=== PATIENT | male | born 1980 | race Caucasian/White ===

== ENCOUNTER 2025-01-25 00:08 | Emergency (ER) | payer BC, SELFPAY ==
--- OUTSIDE RECORDS SUMMARY | 2025-01-25 00:11 | XMS_ITS | Clinical Summary ---
Author Organization [facility] Address [address] [place] [id number] Care Team Providers Care Emr Trainer Name Role Phone Amarilis Benites DO Primary Care Provider [phone] Allergies Active Allergy Reactions Criticality Noted Date Comments Bee Venom Protein (Honey Bee) Hives,Dyspnea Medications medication order composerIndications:RENE (obstructive sleep apnea) 10/26/2020 AHI-15 on HST; Diagnosis obstructive sleep apnea-- MRD #1 1 unit 021 Active fluticasone (50 mcg per actuation) nasal solution (FLONASE)Indications:Na bruno congestion INHALE 2 SPRAYS INTO AFFECTED NOSTRIL(S) ONCE DAILY 48 g 1 023 Active CPAPIndications:RENE (obstructive sleep apnea) CPAP machine for home use at pressure 6-15cmw; starting pressure between 4-6 based on comfort, full face mask x1/3month with a full face cushion x1/mo 1 Each 11 024 Active losartan (COZAAR) 100 mg tabletIndications:Essen tial hypertension Take 1 Tablet (100 mg) by mouth once daily. 90 Tablet 3 024 Active rosuvastatin (CRESTOR) 20 mg tabletIndications:Famil ial hypercholesterolemia Take 1 Tablet (20 mg) by mouth at bedtime. 90 Tablet 3 024 Active sildenafil citrate (VIAGRA) 50 mg tabletIndications:Other male erectile dysfunction Take 1 Tablet (50 mg) by mouth once daily if needed for Erectile Dysfunction. Take 30min to 4 hours before sexual activity. Max 100mg/24hrTAKE 1 TABLET BY MOUTH ONCE A DAY IF NEEDED FOR ERECTILE DYSFUNCTION. TAKE 30 MINS TO 4 HOURS BEFORE SEXUAL ACTIVITY. MAX 100MG PER 24 HOURS 30 Tablet 024 Active tirzepatide (Mounjaro) 2.5 mg/0.5 mL penIndications:Type 2 diabetes mellitus without complication, without long-term current use of insulin (HC),Morbid exogenous obesity (HC) Inject 2.5 mg subcutaneous once weekly. 2 mL 024 Active tirzepatide (Mounjaro) 5 mg/0.5 mL penIndications:Type 2 diabetes mellitus without complication, without long-term current use of insulin (HC),Morbid exogenous obesity (HC) Inject 5 mg subcutaneous once weekly. 2 mL 024 Active tirzepatide (Mounjaro) 7.5 mg/0.5 mL penIndications:Type 2 diabetes mellitus without complication, without long-term current use of insulin (HC),Morbid exogenous obesity (HC) Inject 7.5 mg subcutaneous once weekly. 2 mL 024 Active pen tirzepatide (Mounjaro) 10 mg/0.5 mL penIndications:Type 2 diabetes mellitus without complication, without long-term current use of insulin (HC),Morbid exogenous obesity (HC) Inject 10 mg subcutaneous once weekly. 2 mL 024 Active tirzepatide (Mounjaro) 12.5 mg/0.5 mL penIndications:Type 2 diabetes mellitus without complication, without long-term current use of insulin (HC),Morbid exogenous obesity (HC) Inject 12.5 mg subcutaneous once weekly. 2 mL 024 Active FreeStyle Magali 3 Plus Sensor for continuous blood glucose monitor (CGM)Indications:Type 2 diabetes mellitus without complication, without long-term current use of insulin (HC) To be used to read blood sugars, follow relief captain directions. Wear each for 15 days Active tirzepatide (Mounjaro) 15 mg/0.5 mL penIndications:Type 2 diabetes mellitus without complication, without long-term current use of insulin (HC),Morbid exogenous obesity (HC) Inject 15 mg subcutaneous once weekly. 6 mL 3 025 Active varenicline tartrate 1 mg tabletIndications:Tobac co abuse Take 1 mg by mouth two times daily with meals. 112 Tablet 025 Active EPINEPHrine 0.3 mg/0.3 mL auto-injectorIndication s:Bee sting allergy ADMINISTER 0.3 MG IN THE MUSCLE 1 TIME FOR ALLERGIC REACTION 2 Each 1 025 Active Active Problems Problem Noted Date Diagnosed Date Type 2 diabetes mellitus wit hout complication, without long-term current use of insulin 05/16/2024 Morbid exogenous obesity 05/16/2024 RENE [place] PSG- AHI1 RDI-7 201610/26/2020 AHI-15 o n HST 11/17/2020 Essential hypertension 10/19/2020 Pure hypercholesterolemia 10/19/2020 Prediabetes 10/19/2020 Obesity (BMI 35.0-39.9 without comorbidity) 09/06 Allergic rhinitis, cause unspecified 09/29/2009 Immunizations Immunization Administration Dates Next Due AMB Influenza, IIV4 PF (=>6 mos Flulaval,Fluzone Fluarix)(Flu Clinic Only) 06/06/2018 COVID-19 vaccine (Moderna 100mcg/0.5mL) PF, MDV 08/13/2020,07/16/2020 HepA-HepB (Twinrix) 02/16/2011,09/09/2010,2010 Influenza A (H1N1), Inactivated 07/20/2009 Influenza Virus, Unspecified 05/03/2017, 05/09/2016,05/09/2016,2013,03/24/2013,03/19/2012,04/11/2011 Influenza, IIV3 (Age 6-35 mos) 04/11/2011 Influenza, IIV3 (Age >=3 years) 03/19/2012,04/11 Influenza, IIV4 04/09/2023,,05/03/2017,2015,03/18/2013 TD, UNSPECIFIED 10/16/1995 Td (Age >=7 Years) 10/19/2020, 9,12/20/2002,1995 Tdap 08/05/2010 Family History Medical History Relation Name Comments Basal cell carcinoma Father Diabetes Father Heart Disease Father HTN cardiomyop athy Hypertension Father born [birth year] Melanoma Mother Other Mother born 1955 Heart attack Paternal Uncle Cancer-breast No Family History Cancer-colon No Family History Cancer-ovarian No Family History Cancer-prostate No Family History Relation Name Status Comments Brother Father Mother Paternal Uncle Alive Social History Tobacco Use Types Packs/Day Years Used Date Smoking Tobacco: Former Cigarettes 1 10 Smokeless Tobacco: Former Chew Tobacco Cessation:Counseling Given: Not Answered Alcohol Use Standard Drinks/Week Comments Yes 3 (1 standard drink = 0.6 oz pure alcohol) few beers couple times per week PHQ-2 Answer Date Recorded PHQ-2 TOTAL SCORE 0 05/09/2024 Social Connections Answer Date Recorded Do you often feel lonely or isolated from those around you? 0 05/09/2024 Financial Resource Strain Answer Date R ecorded Difficulty of Paying Living Expenses 3 05/09/2024 Difficulty of Paying Living Expenses Not on file 05/09/2024 Food Insecurity Answer Date Recorded Do you worry your food will run out before you are able to buy more? 1 05/09/2024 Transportation Needs Answer Date Record ed Does lack of transportation keep you from medica l appointments? 1 05/09/2024 Does lack of transportation keep you from work, meetings or getting things that you need? 1 05/09/2024 Housing Stability Answer Date Recorded What is your housing situation today? 1 05/09/2024 Utilities Answer Date Recorded Do you have trouble paying f or utilities (for example, heat, electricity, water, phone)? 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 Respiratory Rate 18 04/26/2022 2:18 PM CDT Oxygen Saturation 98% 05/09/2024 1:02 PM CDT Inhaled Oxygen Concentration - - Weight 144.8 kg (319 lb 4.8 oz) 05/09/2024 1:02 PM CDT Height 188 cm (6' 2) 04/09/2023 7:46 AM CDT Body Mass Index 41 04/09/2023 7:46 AM CDT Plan of Treatment Health Maintenance Due Date Last Done Comments Pneumococcal series for age 6-49 (1 of 2 - PCV) 02/24/1999 COVID-19 vaccine series ( - 2023- season) 2024 08/13/2020, 07/16/2020 BMI (ht and wt on same day) for age 18+ 04/09/2024 04/09/2023, 01/11/2022, 11/17/2020, Additional history exists Influenza Vaccine (#1) 2025 , 03/25/2021, 06/06/2018, Additional history exists Depression screening for age 12+ 05/09/2025 05/09/20 24 Lipids for age 35-44 05/09/2029 05/09/2024, 04/09/2023, 01/06/2021, Additional history exists Tetanus booster 10/19/2030 10/19/2020, 07/10, 12/11/2008, Additional history exists Hepatitis B series for 19+ Completed 02/16, 09/09/2010, 08/05/2010 HIV for age 15-65 Completed 04/09/2023 Hepatitis C screening for ag e 18-79 Completed 04/09/2023 Procedures Procedure Name Priority Date/Time Associated Diagnosis Comments LIPID PANEL W REFLEX MEASURED LDL Routine 05/09/2024 1:57 PM CDT Familial hypercholesterolemia ANTI HIV 1/2 Routine 04/09/2023 8:19 AM CDT Screening for HIV (human immunodeficiency virus) ANTI HCV Routine 04/09/2023 8:19 AM CDT Need for hepatitis C screening test from Last 3 Months or Most Recently Relevant to Health Maintenance Results * LIPID PANEL W REFLEX MEASURED LDL (05/09/2024 1:57 PM CDT) CHOLESTEROL, TOTAL 157 <200 mg/dL [facility] HDL CHOLESTEROL 45 > OR = 40 mg/dL [facility] TRIGLYCERIDES 143 <150 mg/dL [facility] LDL-CHOLESTEROL 88 mg/dL (calc) [facility] Comment: Reference range: <100 Desirable range <100 mg/dL for primary prevention; <70 mg/dL for patients with CHD or diabetic patients with > or = 2 CHD risk factors. LDL-C is now calculated using the Denae calculation, which is a validated novel method providing better accuracy than the Friedewald equation in the estimation of LDL-C. Maynor MAE et al. KATERYNA. 2013;310(19): 3390-8390 (http://education.ePartners/faq/NLH782) CHOL/HDLC RATIO 3.5 <5.0 (calc) [facility] NON HDL CHOLESTEROL 112 <130 mg/dL (calc) [facility] Comment: For patients with diabetes plus 1 major ASCVD risk factor, treating to a non-HDL-C goal of <100 mg/dL (LDL-C of <70 mg/dL) is considered a therapeutic option. Blood BLOOD SPECIMEN / Unknown 05/09/2024 1:57 PM CDT 05/09/2024 1:57 PM CDT Amarilis Benites DO CHEMISTRY Final Result [employer] [facility] [address] [place] [address], [facility] [address] [place] [address] * ANTI HCV (04/09/2023 8:19 AM CDT) Pathologist [facility] HEPATITIS C ANTIBODY Non-Reacti ve Non-React ramo 04/09/2023 1:51 PM CDT [facility] Comment:Please note, per www .CDC.gov: If a patient is known to be at high risk of HCV infection, or is symptomatic, and the physician's suspicion of HCV infection is high, HCV RNA testing is often employed and is of diagnostic value, even after an initial negative anti-HCV test result. Blood BLOOD SPECIMEN / Unknown Venipuncture / Unknown 04/09/2023 8:19 AM CDT 04/09/2023 8:21 AM CDT Amarilis Benites DO SEND OUTS Final Result Performing Organization Address City/[facility]/ZIP Co de Phone Number [facility] [address] [place] [address], * ANTI HIV 1/2 [83811.0] (04/09/2023 8:19 AM CDT) HIV-1/HIV-2 SCREEN Non-Reacti ve Non-Reacti ve 04/09/2023 2:00 PM CDT [facility] Comment:HIV-1 p24 and HIV-1/ HIV-2 Ab Not Detected. Blood BLOOD SPECIMEN / Unknown Venipuncture / Unknown 04/09/2023 8:19 AM CDT 04/09/2023 8:21 AM CDT Amarilis Benites DO SEND OUTS Final Result Performing Organization Address [facility] Co de Phone Number [facility] [address] [place] [address], from Last 3 Months or Most Recently Relevant to Health Maintenance Insurance [facility] [facility] [email or web address] [facility] Care Teams Emr Trainer Relationship Specialty Start Date End Date Amarilis [place] [address] [address] [place] [address] PCP - General Family Practice 05/21/24
[2025-01-25 00:20] VITALS: BP 145/100; PULSE 83; RESP 16; TEMP 36.2; O2SAT 100; BMI 33.2
--- NOTE | 2025-01-25 00:24 | CRLHL7_ITS ---
For Patients: As a result of the Century Cures Act, medical imaging exams and procedure reports are released immediately into your electronic medical record. You may view this report before your referring provider. If you have questions, please contact your health care provider. INDICATION: Injury. TECHNIQUE: Left clavicle 2 views. COMPARISON: None. FINDINGS: Mildly displaced fracture of the left distal clavicular shaft. Overlying soft tissue swelling. Joint alignment is maintained. IMPRESSION: Mildly displaced left distal clavicle fracture. Dictated by Walter Keane MD @ 01/25/2025 12:55:51 AM (Electronically Signed)
--- NOTE | 2025-01-25 00:24 | CRLHL7_ITS ---
For Patients: As a result of the Century Cures Act, medical imaging exams and procedure reports are released immediately into your electronic medical record. You may view this report before your referring provider. If you have questions, please contact your health care provider. INDICATION: Injury. TECHNIQUE: Left shoulder 3 views. COMPARISON: None. FINDINGS: Mildly displaced fracture of the left distal clavicular shaft. Overlying soft tissue swelling. Joint alignment and spaces are maintained. IMPRESSION: Mildly displaced left distal clavicle fracture. Dictated by Walter Keane MD @ 01/25/2025 12:56:46 AM (Electronically Signed)
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
== END 2025-01-25 01:11 | disposition home or self-care (01) ==
PROVIDERS: Emergency Provider Internal Medicine; PCP Family Medicine
DX: S42.002A Fracture of unspecified part of left clavicle, initial encounter for closed fracture (principal)
CPT/HCPCS: 73000; 73030; 99283